=== PATIENT | female | born 1970 | race African-American/Black ===

== ENCOUNTER 2017-04-05 23:31 | Emergency (ER) | payer MEDICAID, OTHER ==
[~2017-04-05] VITALS: Ht 160 cm; Wt 100.0 kg
[2017-04-05 23:54] VITALS: BP 125/79
== END 2017-04-06 00:45 | disposition home or self-care (01) ==
LOC: ER 23:32
DX: M54.5 Low back pain (principal); G89.29 Other chronic pain; L02.416 Cutaneous abscess of left lower limb; I10 Essential (primary) hypertension; F17.200 Nicotine dependence, unspecified, uncomplicated; Z90.710 Acquired absence of both cervix and uterus
CPT/HCPCS: 99283

== ENCOUNTER 2018-03-28 18:34 | Emergency (ER) | payer MEDICAID ==
[~2018-03-28] VITALS: Ht 165.1 cm; Wt 108.0 kg
[~2018-03-28 18:34] MED LIST: ACYC400T5 PO; ALBU18HF2 INH; ASPI-1158 PO; BACL-141 PO; GABA-531 PO; HYDR25TA PO; IBUP-2030 PO; LISI-604 PO
[2018-03-28 23:03] VITALS: BP 111/60
== END 2018-03-29 01:19 | disposition home or self-care (01) ==
LOC: ER 18:34
DX: S92.512A Displaced fracture of proximal phalanx of left lesser toe(s), initial encounter for closed fracture (principal); N64.4 Mastodynia; I10 Essential (primary) hypertension; J44.9 Chronic obstructive pulmonary disease, unspecified; F17.200 Nicotine dependence, unspecified, uncomplicated; Z79.82 Long term (current) use of aspirin; W22.8XXA Striking against or struck by other objects, initial encounter; Y93.89 Activity, other specified; Y92.89 Other specified places as the place of occurrence of the external cause; Y99.8 Other external cause status
CPT/HCPCS: 73630; 81025; 99284

== ENCOUNTER 2018-04-30 20:18 | Emergency (ER) | payer MEDICAID ==
[~2018-04-30] VITALS: Ht 160 cm; Wt 111.0 kg
[2018-04-30 23:10] VITALS: BP 137/87
== END 2018-04-30 23:11 | disposition home or self-care (01) ==
LOC: ER 22:32
DX: N64.4 Mastodynia (principal); J44.9 Chronic obstructive pulmonary disease, unspecified; I10 Essential (primary) hypertension; F17.210 Nicotine dependence, cigarettes, uncomplicated; Z90.710 Acquired absence of both cervix and uterus; Z88.6 Allergy status to analgesic agent; Z79.82 Long term (current) use of aspirin
CPT/HCPCS: 93005; 99283

== ENCOUNTER 2019-03-25 15:25 | Emergency (ER) | payer MEDICAID ==
[~2019-03-25] VITALS: Ht 160 cm; Wt 112.0 kg
[2019-03-25 15:35] VITALS: BP 141/95
== END 2019-03-25 16:20 | disposition home or self-care (01) ==
LOC: ER 15:25
DX: K08.89 Other specified disorders of teeth and supporting structures (principal); K05.10 Chronic gingivitis, plaque induced; I10 Essential (primary) hypertension; J44.9 Chronic obstructive pulmonary disease, unspecified; Z98.890 Other specified postprocedural states; Z90.710 Acquired absence of both cervix and uterus
CPT/HCPCS: 99283

== ENCOUNTER 2023-01-16 06:34 | Emergency (ER) | payer MEDICAID ==
[~2023-01-16] VITALS: Ht 160 cm; Wt 118.0 kg
[~2023-01-16 06:34] MED LIST changes: -ASPI-1158 PO; +ASPI-1406 PO; -GABA-531 PO; +GABA-532 PO; -LISI-604 PO; +LISI20TA31 PO
[2023-01-16 06:54] VITALS: BP 154/102
== END 2023-01-16 10:57 | disposition home or self-care (01) ==
LOC: ER 06:34
DX: I10 Essential (primary) hypertension (principal); J45.909 Unspecified asthma, uncomplicated; M19.90 Unspecified osteoarthritis, unspecified site; Z90.710 Acquired absence of both cervix and uterus; Z79.82 Long term (current) use of aspirin
CPT/HCPCS: 99281